=== PATIENT | female | born 1945 | race Caucasian/White ===

== ENCOUNTER 2016-08-03 16:40 | Emergency (ER) | payer OTHER, MEDICARE ==
[~2016-08-03 16:40] MED LIST: ATENOLOL25 MG PO; FLOMAX(MONOGRA0.4 MG PO; LISINOPRIL10 MG PO; SIMVASTATIN10 MG PO; VITAMIN D31000 IU PO
[2016-08-03 17:26] LABS: ABSOLUTE BASOPHIL COUNT 0 /CUMM (0.0-0.2); ABSOLUTE EOSINOPHIL COUNT 0.2 /CUMM (0.0-0.7); ABSOLUTE GRANULOCYTE CT 12.2 /CUMM (1.4-6.5); ABSOLUTE LYMPH COUNT 1.2 /CUMM (1.2-3.4); ABSOLUTE MONOCYTE COUNT 0.8 /CUMM (0.10-0.60); BASOPHIL % 0.3 % (0.0-2.0); EOSINOPHIL % 1.1 % (0-5); HEMATOCRIT 37.5 % (37-47); MEAN CORPUSCULAR HGB 25.2 PG (27.0-31.0); MEAN CORPUSCULAR VOLUME 78.8 FL (81.0-99.0); PLATELET COUNT 174 /CUMM (130-400); RBC DISTRIBUTION WIDTH 16.1 % (11.5-14.5); RED BLOOD CELL CT 4.76 /CUMM (4.20-5.40); WHITE BLOOD CELL COUNT 14.4 /CUMM (4.8-10.8)
[2016-08-03 17:27] LABS: GRANULOCYTE % 84.5 % (42.2-75.2)
--- NOTE | 2016-08-03 18:20 | ED GI/GU/ABDOMINAL COMPLAINT ---
History of Present Illness General Chief Complaint: Abdominal Pain/Flank Pain Stated Complaint: PER PT ?KIDNEY STONE Source: patient, family, old records Exam Limitations: no limitations Vital Signs & Intake/Output Vital Signs & Intake/Output Vital Signs Date Time Temp Pulse Resp B/P Pulse O2 O2 Flow FiO2 Ox Delivery Rate 08/04 2039 96.9 71 19 152/73 97 Room Air 08/03 1933 97.2 73 18 150/68 97 Room Air 08/03 1909 96.9 08/03 1852 98 08/03 1705 96.9 65 22 168/72 96 Room Air ED Intake and Output 08/04 0000 08/03 1200 Intake Total 1000 Output Total Balance 1000 Intake, IV 1000 Patient 230 lb Weight Allergies Coded Allergies: codeine (N/V 08/03/16) Reconcile Medications Atenolol 25 MG TABLET 1 TAB PO DAILY BP (Reported) Hydromorphone HCl (Dilaudid) 2 MG TABLET 1 TAB PO Q6H PRN pain may cause drowsiness Lisinopril 10 MG TABLET 1 TAB PO DAILY BP (Reported) Ondansetron (Zofran Odt) 4 MG TAB.RAPDIS 1-2 TAB SL Q6-8 PRN nausea Simvastatin (Simvastatin*) 10 MG TABLET 1 TAB PO QPM CHOLESTEROL (Reported) Tamsulosin HCl (Flomax) 0.4 MG CAP.ER.24H 1 CAP PO DAILY URINATING (Reported) Tamsulosin HCl (Flomax) 0.4 MG CAP.ER.24H 1 CAP PO DAILY PRN kidney stone Triage Note: PER PT RT SIDED PAIN HX OF KIDNEY STONES THIS PAIN NONRADIATING. Triage Nurses Notes Reviewed? yes ? n Is pt currently ? No HPI: Patient is a 71-year-old female presents complaining of left sided abdominal pain sudden onset this afternoon. Pain is a sharp pain, no exacerbating or alleviating factors. Patient took a dose of Flomax prior to arrival, was administered ibuprofen at triage with no significant improvement. Associated nausea. Patient reports she has a history of kidney stones but they have always been on the right side. Patient denies fevers, chills, vomiting, hematuria, dysuria, bowel symptoms. (DEB KURTZ,EMANUEL) Past History Travel History Traveled to [place] past 21 day No Medical History Any Pertinent Medical History? see below for history Neurological: NONE EENT: TONCILS REMOVED Cardiovascular: hypertension, hyperlipidemia Respiratory: NONE Gastrointestinal: diverticulitis, HEMORRHOIDS Hepatic: NONE Renal: KIDNEY STONES Musculoskeletal: NONE Psychiatric: NONE Endocrine: NONE Blood Disorders: NONE Cancer(s): NONE [employer]ER/DESIGNER/Reproductive: NONE History of MRSA: No History of VRE: No History of CDIFF: No Surgical History Surgical History: non-contributory Psychosocial History What is your primary language Maltese Tobacco Use: Never used Family History Hx Contributory? No (EMANUEL ROGEL) Review of Systems Review of Systems Constitutional: Denies: chills, fever. EENTM: Reports: no symptoms. Respiratory: Denies: cough, short of breath. Cardiovascular: Denies: chest pain. GI: Reports: see HPI. Genitourinary: Reports: no symptoms. Musculoskeletal: Denies: back pain. Skin: Reports: no symptoms. Neurological/Psychological: Reports: no symptoms. Hematologic/Endocrine: Reports: no symptoms. Immunologic/Allergic: Reports: no symptoms. (EMANUEL ROGEL) Physical Exam Physical Exam General Appearance: well developed/nourished, alert, awake Head: atraumatic, normal appearance Eyes: Bilateral: normal appearance, PERRL, EOMI. Ears, Nose, Throat, Mouth: hearing grossly normal, moist mucous membrane Neck: normal inspection, supple, full range of motion Respiratory: normal breath sounds, chest non-tender, no respiratory distress, lungs clear Cardiovascular: regular rate/rhythm Gastrointestinal: normal bowel sounds, soft, LEFT UPPER QUADRANT TENDERNESS. nEGATIVE Tan SIGN, NEGATIVE mCbURNEY'S POINT TENDERNESS Back: normal inspection, normal range of motion, NO cva TENDERNESS Extremities: normal range of motion Neurologic/Psych: no motor/sensory deficits, awake, alert, oriented x 3, normal gait, normal mood/affect Skin: intact, normal color, warm/dry Core Measures ACS in differential dx? No Severe Sepsis Present: No Septic Shock Present: No (EMANUEL ROGEL) Progress Differential Diagnosis: AAA, diverticulitis, gastritis, hepatitis, hernia, inflamm bowel dis, kidney stone, UTI/pyelo, AORTIC DISSECTION Plan of Care: Orders Procedure Date/time Status URINALYSIS 08/03 1708 Complete LIPASE 08/03 1708 Complete COMPREHENSIVE METABOLIC PANEL 08/03 170 Complete CBC WITHOUT DIFFERENTIAL 08/04 1707 Complete AMYLASE 08/03 170 Complete Laboratory Tests 08/03/16 1723: Urinalysis HEAVY H, Urine Color YEL, Urine Clarity HAZY H, Urine pH 5.0, Ur Specific [place] >= 1.030, Urine Protein NEG, Urine Ketones NEG, Urine Nitrite NEG, Urine Bilirubin NEG, Urine Urobilinogen 0.2, Ur Leukocyte Esterase NEG, Ur Microscopic SEDIMENT EXAMINED, Urine RBC 25-50 H, Urine WBC 3-5 H, Ur Epithelial Cells MOD H, Urine Bacteria MOD H, Urine Hemoglobin MOD H, Urine Glucose NEG 08/03/16 1713: Anion Gap 13, Estimated GFR 34 L, BUN/Creatinine Ratio 13.3, Glucose 138 H, Calcium 9.4, Total Bilirubin 0.5, AST 14, ALT 23, Alkaline Phosphatase 102, Total Protein 7.3, Albumin 4.0, Globulin 3.3, Albumin/Globulin Ratio 1.2, Amylase 59, Lipase 109, CBC w Diff NO MAN DIFF REQ, RBC 4.76, MCV 78.8 L, MCH 25.2 L, RDW 16.1 H, MPV 10.0, Gran % 84.5 H, Lymphocytes % 8.4 L, Monocytes % 5.7, Eosinophils % 1.1, Basophils % 0.3, Absolute Granulocytes 12.2 H, Absolute Lymphocytes 1.2, Absolute Monocytes 0.8 H, Absolute Eosinophils 0.2, Absolute Basophils 0, PUBS MCHC 32.[address] Cast. 08/03/2016 8:30:02 PM: Results discussed with patient and her . Patient's pain is well-controlled. Patient is currently nauseous I suspect secondary to the IV morphine. Discussed pain medication options with patient. Patient reports that she has had nausea side effects from hydrocodone, oxycodone, codeine. Patient will start with [id number] pain medication and if needed try Dilaudid for severe pain. No active vomiting in the emergency department. Patient appears stable for discharge with urology follow-up. (DEB KURTZ,EMANUEL) Diagnostic Imaging: Viewed by Me: CT Scan. Discussed w/RAD: CT Scan. Radiology Impression: PATIENT: CELESTE CHILD PRESENT AGE: 71 PATIENT ACCOUNT NO: [id number] : 45 LOCATION: [facility] ORDERING PHYSICIAN: EMANUEL KURTZ SERVICE DATE: 08/03/16 EXAM TYPE: CAT - CT ABD & PELVIS W/O IV CONTRAS EXAMINATION: CT ABDOMEN AND PELVIS WITHOUT CONTRAST CLINICAL INFORMATION: Left-sided abdominal pain. Hematuria. COMPARISON: 02/07/2015. TECHNIQUE: Contiguous axial thin section helical images of the abdomen and pelvis were performed without oral or IV contrast. The data set was reformatted in the coronal and sagittal planes and reviewed on an independent workstation. DLP: 1329 mGy-cm. FINDINGS: There is mild dependent bibasilar atelectasis. The visualized lung bases are otherwise clear. The visualized portions of the heart are unremarkable. The liver is of normal size and attenuation without focal lesions nor intrahepatic biliary ductal dilation. A normal gallbladder is identified. There is no wall thickening or discernible pericholecystic fluid. The spleen, pancreas, adrenal glands are unremarkable. Both kidneys are of normal size and attenuation. There is a 2 mm nonobstructive calculus within the upper pole the right kidney. There is a 2 mm nonspecific calculus within the interpole region. There is a 3 mm nonobstructive focus within the lower pole of the right kidney. There is a 5.7 cm right upper pole renal cyst. There is a 3 mm obstructive proximal left ureteral calculus with grade 2-3 associated hydroureteronephrosis. There is perinephric and periureteral stranding. There are additional nonobstructive calculi throughout the left kidney. The largest measures 3 mm. There is no abdominal free fluid. There is neither mesenteric nor retroperitoneal lymphadenopathy. There is extensive sigmoid diverticulosis with mild wall thickening and adjacent mesenteric fat stranding. Otherwise, unremarkable unopacified loops of small and large bowel are identified. There is no pelvic free fluid. The urinary bladder is unremarkable. There is neither pelvic nor inguinal lymphadenopathy. Bone windows: Neither sclerotic nor lytic bone lesions are identified. IMPRESSION: 3 mm obstructive proximal left ureteral calculus with associated hydroureteronephrosis. Extensive sigmoid diverticulosis with mild diverticulitis. No drainable fluid collections. Nonobstructive renal calculi bilaterally. DICTATED BY: LAM BRAN MD DATE/TIME DICTATED:08/03/161937 TUNG NUT GROWER:NURIA DATE/TIME TRANSCRIBED:08/03/161937 CONFIDENTIAL, DO NOT COPY WITHOUT APPROPRIATE AUTHORIZATION. <Electronically signed in Other Vendor System> SIGNED BY: LAM BRAN MD 08/03/161944 Initial ED EKG: none (EMANUEL ROGEL) Departure Departure Time of Disposition: 2029 Disposition: HOME OR SELF CARE Condition: Stable Clinical Impression Primary Impression: Renal colic on left side Referrals: NE ROMO MD (PCP/Family) CATINA LU MD Additional Instructions: Take Tylenol and Ibuprofen as directed. Follow up with Dr. Lu(urologist) for further evaluation. Call in the morning for appointment. Take Flomax as directed. Return to the ER if fevers, pain uncontrollable, unable to stay hydrated or worsening of symptoms. Departure Forms: Customer Survey General Discharge Information Prescriptions: Current Visit Scripts Hydromorphone HCl (Dilaudid) 1 TAB PO Q6H PRN pain #10 TAB may cause drowsiness Ondansetron (Zofran Odt) 1-2 TAB SL Q6-8 PRN nausea #15 TAB Tamsulosin HCl (Flomax) 1 CAP PO DAILY PRN kidney stone #10 CAP (EMANUEL ROGEL) PA/ACCOUNT EXEC[employer]IVE [employer] Co-Sign Statement Statement: ED Attending supervision documentation- [X] I saw and evaluated the patient. I have also reviewed all the pertinent lab results and diagnostic results. I agree with the findings and the plan of care as documented in the PA's/ACCOUNT EXEC[employer]IVE [employer]'s documentation. [X] I have reviewed the ED Record and agree with the PA's/ACCOUNT EXEC[employer]IVE [employer]'s documentation. [] Additions or exceptions (if any) to the PAs/ACCOUNT EXECUTIVE SOFTWARE SALES's note and plan are summarized below: [] (DANIELLE BRADSHAW,MARTÍNEZ Calvillo)
[2016-08-03] MEDS ORDERED: SIMVASTATIN10 M1 PO (18:58)
[2016-08-03] MEDS ORDERED: FLOMAX0.4 M1 PO ×2 (18:58→20:32)
[2016-08-03] MEDS ORDERED: LISINOPRIL10 M1 PO (18:58)
[2016-08-03] MEDS ORDERED: ATENOLOL25 M1 PO (18:58)
--- NOTE | 2016-08-03 19:45 | CT SCAN REPORT ---
EXAMINATION: CT ABDOMEN AND PELVIS WITHOUT CONTRAST CLINICAL INFORMATION: Left-sided abdominal pain. Hematuria. COMPARISON: 02/07/2015. TECHNIQUE: Contiguous axial thin section helical images of the abdomen and pelvis were performed without oral or IV contrast. The data set was reformatted in the coronal and sagittal planes and reviewed on an independent workstation. DLP: 1329 mGy-cm. FINDINGS: There is mild dependent bibasilar atelectasis. The visualized lung bases are otherwise clear. The visualized portions of the heart are unremarkable. The liver is of normal size and attenuation without focal lesions nor intrahepatic biliary ductal dilation. A normal gallbladder is identified. There is no wall thickening or discernible pericholecystic fluid. The spleen, pancreas, adrenal glands are unremarkable. Both kidneys are of normal size and attenuation. There is a 2 mm nonobstructive calculus within the upper pole the right kidney. There is a 2 mm nonspecific calculus within the interpole region. There is a 3 mm nonobstructive focus within the lower pole of the right kidney. There is a 5.7 cm right upper pole renal cyst. There is a 3 mm obstructive proximal left ureteral calculus with grade 2-3 associated hydroureteronephrosis. There is perinephric and periureteral stranding. There are additional nonobstructive calculi throughout the left kidney. The largest measures 3 mm. There is no abdominal free fluid. There is neither mesenteric nor retroperitoneal lymphadenopathy. There is extensive sigmoid diverticulosis with mild wall thickening and adjacent mesenteric fat stranding. Otherwise, unremarkable unopacified loops of small and large bowel are identified. There is no pelvic free fluid. The urinary bladder is unremarkable. There is neither pelvic nor inguinal lymphadenopathy. Bone windows: Neither sclerotic nor lytic bone lesions are identified. IMPRESSION: 3 mm obstructive proximal left ureteral calculus with associated hydroureteronephrosis. Extensive sigmoid diverticulosis with mild diverticulitis. No drainable fluid collections. Nonobstructive renal calculi bilaterally.
[2016-08-03] MEDS ORDERED: ZOFRAN ODT4 M1 SL (20:32)
[2016-08-03] MEDS ORDERED: DILAUDID2 M1 PO (20:32)
[2016-08-03 20:40] VITALS: BP 152/73
== END 2016-08-03 20:41 ==
LOC: ERH 16:40
PROVIDERS: Emergency Medicine
DX: N23 Unspecified renal colic (principal)
CPT/HCPCS: 74176; 81001; 96374; 96375; J2405; J2765